=== PATIENT | female | born 1960 | race Caucasian/White ===

== ENCOUNTER 2018-12-06 06:13 | Day surgery (SDC) | payer OTHER ==
[~2018-12-06] VITALS: Ht 162.6 cm; Wt 55.8 kg
[~2018-12-06 06:13] MED LIST: ATOR10TA65 PO; HTN; LISINOPRIL
[2018-12-06 07:05] VITALS: Ht 162.6 cm; Wt 55.8 kg
[2018-12-06 07:31] VITALS: BP 159/89; PULSE 71; RESP 14
[2018-12-06] MEDS ORDERED: MIDAZOLAM 1 MG/ML 2 ML INJ ONE ×2 (08:51)
[2018-12-06] MEDS ORDERED: FENTAnyl 50 MCG/ML VIAL ONE (08:51)
[2018-12-06 09:11] VITALS: BP 127/71; PULSE 60; RESP 16
== END 2018-12-06 10:09 | disposition home or self-care (01) ==
LOC: GIL 06:13
PROVIDERS: ATTEND Internal Medicine Gastroenterology
DX: Z12.11 Encounter for screening for malignant neoplasm of colon (principal); K64.8 Other hemorrhoids; Z86.010 Personal history of colon polyps; I10 Essential (primary) hypertension
CPT/HCPCS: 45378; J2250; J3010